=== PATIENT | female | born 1970 | race Caucasian/White ===

== ENCOUNTER → 2017-02-18 | Outpatient (CLI) | payer OTHER ==
[~2017-02-18] MED LIST: FLONASE ALLER15.8 ML; IRON325 M1 PO; KEFLEX500 MG PO; LISINOPRIL20 MG PO; LOPERAMIDE2 M1 PO; LORATADINE10 MG PO; LORCET 5-325 M1 EACH PO; LOVENOX SY40 MG/0.4 SQ; NEURONTIN 400400 MG PO; PERCOCET 10-321 EACH PO; TEGRETOL200 MG PO; ZESTORETIC 20-1 EACH PO
[2017-02-18 12:34] LABS: HEMOGLOBIN 12.5 gm/dl (12.3-15.3); RED BLOOD COUNT 4.47 M/UL (4.00-5.10); WHITE BLOOD COUNT 5.6 K/UL (4.5-11.0)
[2017-02-18 12:52] LABS: BUN/CREATININE RATIO 12 (0-10)
== END ==
LOC: OPSV2 11:00
PROVIDERS: Orthopaedic Surgery
DX: Z01.810 Encounter for preprocedural cardiovascular examination (principal); Z01.812 Encounter for preprocedural laboratory examination; M16.11 Unilateral primary osteoarthritis, right hip; B19.20 Unspecified viral hepatitis C without hepatic coma; E07.9 Disorder of thyroid, unspecified; Z88.5 Allergy status to narcotic agent
CPT/HCPCS: 36415; 80048; 80156; 84439; 84443; 85025; 87081; 93005

== ENCOUNTER 2020-11-22 14:53 | Emergency (ER) | payer OTHER ==
[2020-11-22 17:45] LABS: HEMOGLOBIN 10.8 gm/dl (12.3-15.3); RED BLOOD COUNT 3.75 M/UL (4.00-5.10)
[2020-11-22 18:33] LABS: BUN/CREATININE RATIO 16 (0-10)
== END 2020-11-22 20:10 | disposition home or self-care (01) ==
LOC: ER1 14:53
PROVIDERS: Student in an Organized Health Care Education/Training Program
DX: M25.551 Pain in right hip (principal); Z88.5 Allergy status to narcotic agent; Z96.641 Presence of right artificial hip joint
CPT/HCPCS: 72170; 73552; 80053; 80307; 81001; 82550; 82553; 83605; 83735; 83874; 84100; 84484; 84702; 85025; 85652; 86140; 99283; G0480

== ENCOUNTER 2020-12-29 09:26 | Inpatient (IN) | payer OTHER ==
[~2020-12-29] VITALS: Ht 170.2 cm; Wt 66.4 kg
[2020-12-29 10:17] LABS: HEMOGLOBIN 10.9 gm/dl (12.3-15.3); RED BLOOD COUNT 3.97 M/UL (4.00-5.10); WHITE BLOOD COUNT 6.9 K/UL (4.5-11.0)
[2020-12-29] MEDS ORDERED: AMOX TR-K CLV1 EAC4 PO (10:46)
[2020-12-29 10:51] LABS: BUN/CREATININE RATIO 17 (0-10)
[2020-12-29] MEDS ORDERED: TORADOL 10 MG T10 MG PO (14:27)
[2020-12-30 03:32] LABS: WHITE BLOOD COUNT 7.4 K/UL (4.5-11.0)
[2020-12-30 03:42] LABS: HEMOGLOBIN 8.8 gm/dl (12.3-15.3); RED BLOOD COUNT 3.19 M/UL (4.00-5.10)
[2020-12-30 03:55] LABS: BUN/CREATININE RATIO 16 (0-10)
[2020-12-31 04:06] LABS: RED BLOOD COUNT 2.88 M/UL (4.00-5.10)
[2020-12-31 04:18] LABS: WHITE BLOOD COUNT 9.9 K/UL (4.5-11.0)
[2020-12-31 04:27] LABS: BUN/CREATININE RATIO 14 (0-10)
[2021-01-01 03:53] LABS: HEMOGLOBIN 7.8 gm/dl (12.3-15.3); RED BLOOD COUNT 2.87 M/UL (4.00-5.10); WHITE BLOOD COUNT 8.9 K/UL (4.5-11.0)
[2021-01-01 04:30] LABS: BUN/CREATININE RATIO 23 (0-10)
[2021-01-02 05:39] LABS: WHITE BLOOD COUNT 7.1 K/UL (4.5-11.0)
[2021-01-02 05:45] LABS: RED BLOOD COUNT 3.26 M/UL (4.00-5.10)
[2021-01-02 06:00] LABS: BUN/CREATININE RATIO 14 (0-10)
[2021-01-03 07:05] LABS: HEMOGLOBIN 8.1 gm/dl (12.3-15.3); RED BLOOD COUNT 2.95 M/UL (4.00-5.10); WHITE BLOOD COUNT 5.5 K/UL (4.5-11.0)
[2021-01-03 07:27] LABS: BUN/CREATININE RATIO 15 (0-10)
[2021-01-04 05:48] LABS: HEMOGLOBIN 8.7 gm/dl (12.3-15.3); RED BLOOD COUNT 3.13 M/UL (4.00-5.10); WHITE BLOOD COUNT 6.6 K/UL (4.5-11.0)
[2021-01-04 06:06] LABS: BUN/CREATININE RATIO 13 (0-10)
[2021-01-06 03:44] LABS: HEMOGLOBIN 8.5 gm/dl (12.3-15.3); RED BLOOD COUNT 3.09 M/UL (4.00-5.10)
[2021-01-06 04:12] LABS: BUN/CREATININE RATIO 13 (0-10)
--- NOTE | 2021-01-06 11:42 | NUR ---
1110- PATIENT LEFT FOR OR AT THIS TIME.
[2021-01-06] MEDS ORDERED: AUGMENTIN 875-1 EACH PO (12:16)
--- NOTE | 2021-01-06 18:01 | NUR ---
1246- PATIENT BACK FROM OR AT THIS TIME. VITAL SIGNS STABLE. NO DISTRESS NOTED. NO COMPLAINTS NOTED.
[2021-01-07 05:26] LABS: BUN/CREATININE RATIO 17 (0-10)
--- NOTE | 2021-01-07 07:23 | NUR ---
ONE TIME ORDER FOR HYDROCODONE ENTERED BACK INTO THE SYSTEM. DID NOT GIVE LAST NIGHT.
== END 2021-01-07 17:23 | disposition home health service (06) | DRG 464 ==
LOC: OR 09:26 → M/S 14:25 → OR 15:17 → M/S 15:17 → OR 17:30 → M/S 01-07 17:23
PROVIDERS: Internal Medicine; Physician Assistant; ADMIT Orthopaedic Surgery
PROC: 0KBQ0ZZ Excision of Right Upper Leg Muscle, Open Approach (ICD-10-PCS; 2020-12-29)
PROC: 0JBL0ZZ Excision of Right Upper Leg Subcutaneous Tissue and Fascia, Open Approach (ICD-10-PCS; principal; 2020-12-30 13:04)
PROC: 2W0NX6Z Change Pressure Dressing on Right Upper Leg (ICD-10-PCS; 2021-01-03)
PROC: 3E10X8Z Irrigation of Skin and Mucous Membranes using Irrigating Substance (ICD-10-PCS; 2021-01-06)
PROC: 2W0NX6Z Change Pressure Dressing on Right Upper Leg (ICD-10-PCS; 2021-01-06)
DX: M60.051 Infective myositis, right thigh (principal); L02.415 Cutaneous abscess of right lower limb; D62 Acute posthemorrhagic anemia; Z20.822 Contact with and (suspected) exposure to COVID-19; B95.61 Methicillin susceptible Staphylococcus aureus infection as the cause of diseases classified elsewhere; F17.210 Nicotine dependence, cigarettes, uncomplicated; E87.6 Hypokalemia; F19.11 Other psychoactive substance abuse, in remission; F12.90 Cannabis use, unspecified, uncomplicated; Z96.641 Presence of right artificial hip joint; Z90.49 Acquired absence of other specified parts of digestive tract; Z87.81 Personal history of (healed) traumatic fracture; Z98.51 Tubal ligation status; Z88.6 Allergy status to analgesic agent; Z88.5 Allergy status to narcotic agent; Z80.1 Family history of malignant neoplasm of trachea, bronchus and lung; Z82.5 Family history of asthma and other chronic lower respiratory diseases; Z82.49 Family history of ischemic heart disease and other diseases of the circulatory system; Z86.19 Personal history of other infectious and parasitic diseases
CPT/HCPCS: 36415; 80048; 80202; 85025; 85027; 86140; 87040; 87070; 87205; 93005; J0690; J1100; J1650; J1885; J2001; J2250; J2270; J2405; J2543; J2704; J2710; J3010; J3370; J7030; J7070; J7120; U0002